=== PATIENT | female | born 1945 | race Caucasian/White ===

== ENCOUNTER 2019-03-11 09:08 | Day surgery (SDC) | payer MEDICARE, BC ==
[~2019-03-11 09:08] MED LIST: Lactated Ringers 1,000 ML IV SCH; Lidocaine 1%/Sod Bicarbonate in NS 8.4% 1 ML Syringe IDERM PRN; Sodium Chloride 0.9% 10 ML Syringe FLUSH PRN
--- NOTE | 2019-03-11 09:43 | PCM.PREANE ---
Preanesthetic Assessment - Anesthesia/Transfusion/Family Hx Anesthesia History: Prior Anesthesia Without Reaction Family History of Anesthesia Reaction: No Transfusion History: No Prior Transfusion(s) - Review of Systems General: No Symptoms Pulmonary: Other (stuffy nose) Cardiovascular: Dyspnea on Exertion Gastrointestinal: No Symptoms Neurological: No Symptoms Other: Reports: None - Physical Assessment NPO Status Date: 03/10/19 NPO Status Time: 00:00 Pulse: 79 O2 Sat by Pulse Oximetry: 96 Respiratory Rate: 16 Blood Pressure: 159/69 Temperature: 36.2 C Vital Signs: Last Vital Signs Temp 36.2 C 03/11/19 09:15 Pulse 79 03/11/19 09:15 Resp 16 03/11/19 09:15 BP 159/69 H 03/11/19 09:15 Pulse Ox 96 03/11/19 09:15 ASA Class: 3 Mental Status: Alert & Oriented x3 Airway Class: Mallampati = 2 Dentition: Reports: [place](s) Thyro-Mental Finger Breadths: 2 Mouth Opening Finger Breadths: 3 ROM/Head Extension: Limited/Partial Lungs: Clear to Auscultation, Normal Respiratory Effort Cardiovascular: Regular Rate, Regular Rhythm - Allergies Allergies/Adverse Reactions: Allergies Allergy/AdvReac Type Severity Reaction Status Date / Time Iodinated Contrast- Oral and Allergy Swelling Verified 03/08/19 12:28 IV Dye shellfish derived Allergy Swelling Verified 03/08/19 12:28 - Blood Blood Available: No Product(s) Available: None - Anesthesia Plan Pre-Op Medication Ordered: Beta Amena Beta Amena: Metoprolol Med Last Dose Date: 03/10/19 Med Last Dose Time: 00:00 - Acknowledgements Anesthesia Type Planned: MAC Pt an Appropriate Candidate for the Planned Anesthesia: Yes Alternatives and Risks of Anesthesia Discussed w Pt/Guardian: Yes Pt/Guardian Understands and Agrees with Anesthesia Plan: Yes PreAnesthesia Questionnaire Cardiovascular History: Reports: Blood Clots/VTE/DVT Respiratory History: Reports: PE Genitourinary History: Reports: None 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: 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 Neurological History: Reports: None Psychiatric History: Reports: None Endocrine/Metabolic History: Reports: None Hematologic History: Reports: None Immunologic History: Reports: None Oncologic (Cancer) History: Reports: Basal Cell Carcinoma, Breast Dermatologic History: Reports: Other (See Below) Other Dermatologic History: SEBORRHEIC KERATOSIS, SKIN EXCISIONS FOR BASAL CELL CARCINOMA - Past Surgical History Head Surgeries/Procedures: Reports: None HEENT Surgical History: Reports: Tonsillectomy Cardiovascular Surgical History: Reports: None Respiratory Surgical History: Reports: None GI Surgical History: Reports: Appendectomy, Colonoscopy Female Surgical History: Reports: Breast Biopsy, D&C, Hysterectomy, Oophorectomy Endocrine Surgical History: Reports: None Neurological Surgical History: Reports: None Musculoskeletal Surgical History: Reports: None Oncologic Surgical History: Reports: Lumpectomy - SUBSTANCE USE Smoking Status *Q: Former Smoker Tobacco Use Within Last Twelve Months: No Second Hand Smoke Exposure: No Days Per Week of Alcohol Use: 1 Number of Drinks Per Day: 0 Total Drinks Per Week: 0 Recreational Drug Use History: No - HOME MEDS Home Medications: Home Meds Allopurinol [Zyloprim] 50 mg PO DAILY 03/08/19 [History] Cholecalciferol (Vitamin D3) [Vitamin D3] 1,000 unit PO DAILY 03/08/19 [History] Cinnamon Bark [Cinnamon] 500 mg PO BID 03/08/19 [History] Fish Oil/[place]-3 Fatty Acids [Fish Oil 1,000 MG] 1 gm PO DAILY 03/08/19 [History ] Hydrochlorothiazide/Losartan [Hyzaar 50-12.5 MG] 1 tab PO DAILY 03/08/19 [ History] Lutein/Minerals/Vit A,C & E [Ocuvite] 1 tab PO DAILY 03/08/19 [History] Metoprolol Tartrate 50 mg PO BID 03/08/19 [History] Warfarin Sodium 2.5 mg PO MO 03/08/19 [History] Warfarin Sodium 5 mg PO SUTUWETHFRSA 03/08/19 [History] - CURRENT (IN HOUSE) MEDS Current Meds: Current Medications Lactated Ringer's (Ringers, Lactated) 1,000 mls @ 125 mls/hr IV ASDIRECTED STACY Stop: 03/11/19 23:00 Lidocaine/Sodium Bicarbonate (Buffered Lidocaine 1% In Ns 8.4%) 0.25 ml IDERM ONETIME PRN PRN Reason: Prior to IV Start Stop: 03/11/19 18:00 Sodium Chloride (Saline Flush) 10 ml FLUSH ASDIRECTED PRN PRN Reason: Keep Vein Open Stop: 03/11/19 18:00
[2019-03-11] MEDS ORDERED: Propofol 200 MG/20 ML SDV ONE ×2 (11:10→11:27)
[2019-03-11] MEDS ORDERED: Midazolam 1 MG/ML 2 ML SDV ONE (11:10)
[2019-03-11] MEDS ORDERED: fentaNYL 100 MCG/2 ML SDV ONE (11:10)
[2019-03-11] MEDS ORDERED: Lidocaine 1% 4 ML ONE (11:12)
--- NOTE | 2019-03-11 11:51 | PCM.OPNOTE ---
- General Post-Op/Procedure Note Date of Surgery/Procedure: 03/11/19 Operative Procedure(s): egd with bx and colonoscopy to cecum, Pre Op Diagnosis: positive cologuard and family hx of gastric cancer Post-Op Diagnosis: Same Anesthesia Technique: MAC Primary Surgeon: Rodger Zuniga EBL in mLs: 0 Complications: None Condition: Good
--- NOTE | 2019-03-12 07:01 | OR ---
DATE OF OPERATION: 03/11/2019 SURGEON: Rodger Zuniga MD PREOPERATIVE DIAGNOSIS: 1. Positive Cologuard. 2. Family history of gastric cancer. POSTOPERATIVE DIAGNOSIS: 1. Positive Cologuard. 2. Family history of gastric cancer. OPERATION PERFORMED: Upper GI endoscopy. FINDINGS: Show a short esophagus. GE junction of about 30 cm with a Schatzki's ring and a sliding hiatal hernia. The second portion of the duodenum, duodenal bulb, and pyloric channel were unremarkable. Antrum showed some atrophic mucosa. This was biopsied. Body and cardia of the stomach unremarkable as was the fundus and the balance of the esophagus did not show any pathology. ANESTHESIA: IV sedation. DESCRIPTION OF PROCEDURE: The patient was taken to the endoscopy room, placed in a supine position connected to monitoring equipment, and given IV sedation, placed in left lateral position. Bite block was inserted and video Olympus gastroscope placed in the posterior oropharynx. It was threaded under direct vision past the cricopharyngeus, down the esophagus, and into the stomach. Stomach was insufflated. Scope passed through the pylorus and the second portion of the duodenum. It was then slowly withdrawn showing the second portion of the duodenum, duodenal bulb, and pyloric channel. Antrum, body, cardia, and fundus of the stomach were viewed. J-maneuver was performed showing sliding hiatal hernia, atrophic gastric mucosa, especially in the antrum. The antrum was biopsied. Scope withdrawn to the GE junction, showed the above findings. No biopsies were done. Rest of the esophagus was unremarkable. The patient tolerated the procedure. Specimen was sent to pathology in a labeled container, and the endoscopy was continued for colonoscopy. ESTIMATED BLOOD LOSS: MMODAL /[id number]
--- NOTE | 2019-03-12 07:08 | OR ---
DATE OF OPERATION: 03/11/2017 SURGEON: Rodger Zuniga MD PREOPERATIVE DIAGNOSIS: Positive Cologuard test. POSTOPERATIVE DIAGNOSIS: Positive Cologuard test. OPERATION PERFORMED: Colonoscopy to the cecum. FINDINGS: Normal study. ANESTHESIA: IV sedation. DESCRIPTION OF PROCEDURE: The patient was taken to the endoscopy room having been connected to monitoring equipment, undergone an EGD, IV sedation continued for colonoscopy. She was placed in the left lateral position. Perianal area was inspected, it was normal. Rectal exam showed good sphincter tone. A video Olympus colonoscope was then introduced into the rectum and threaded up without problem to the cecum, where the appendicular orifice of the ileocecal valve was noted. Prep was excellent. [place] Cleansing Score grade A, and the scope was slowly withdrawn showing the cecum, ascending colon, transverse colon, descending colon, sigmoid colon, and rectum. Retroflex view was done. The patient tolerated the procedure and sent to recovery room in a stable condition. ESTIMATED BLOOD LOSS: MMODAL /[id number]
== END 2019-03-11 12:38 | disposition home or self-care (01) ==
LOC: JD.SDS 09:08
PROVIDERS: ATTEND Surgery
DX: K29.40 Chronic atrophic gastritis without bleeding (principal); R19.5 Other fecal abnormalities; K44.9 Diaphragmatic hernia without obstruction or gangrene; Z80.0 Family history of malignant neoplasm of digestive organs; D68.9 Coagulation defect, unspecified; Z79.01 Long term (current) use of anticoagulants; Z79.899 Other long term (current) drug therapy; Z91.013 Allergy to seafood; Z87.891 Personal history of nicotine dependence; Z91.041 Radiographic dye allergy status
CPT/HCPCS: 36415; 43239; 45378; 85610; 88305; J2001; J2250; J2704; J3010; J7120; 00813

== ENCOUNTER 2019-10-08 10:59 | Day surgery (SDC) | payer MEDICARE, BC ==
[~2019-10-08 10:59] MED LIST changes: +Cefuroxime 10 MG/ML SYRINGE EYERT SCH; +Lidocaine 1% PF 2 ML SDV INJECT SCH; +Pilocarpine 4% Ophth Soln 15 ML Bot EYERT SCH
[2019-10-08] MEDS: Polymyxin B/Trimethoprim 10 ML Bottle EYERT SCH ×3 (11:57→14:06)
--- NOTE | 2019-10-08 12:03 | PCM.PREANE ---
Preanesthetic Assessment - Anesthesia/Transfusion/Family Hx Anesthesia History: Prior Anesthesia Without Reaction Transfusion History: No Prior Transfusion(s) Intubation History: Unknown - Review of Systems General: No Symptoms Pulmonary: No Symptoms Cardiovascular: Other (HTN, on coumadin for blood clots, last dose 10/07/19) Gastrointestinal: No Symptoms Neurological: No Symptoms - Physical Assessment NPO Status Date: 10/07/19 NPO Status Time: 18:00 Height: 1.57 m Weight: 97.522 kg ASA Class: 2 Mental Status: Alert & Oriented x3 Airway Class: Mallampati = 2 Dentition: Reports: Normal Dentition Thyro-Mental Finger Breadths: 3 Mouth Opening Finger Breadths: 3 ROM/Head Extension: Full Lungs: Clear to Auscultation, Normal Respiratory Effort Cardiovascular: Regular Rate, Regular Rhythm - Allergies Allergies/Adverse Reactions: Allergies Allergy/AdvReac Type Severity Reaction Status Date / Time Iodinated Contrast Media Allergy Swelling Verified 10/07/19 15:29 [Iodinated Contrast- Oral and IV Dye] shellfish derived Allergy Swelling Verified 10/07/19 15:29 - Blood Blood Available: No Product(s) Available: None - Anesthesia Plan Pre-Op Medication Ordered: None - Acknowledgements Anesthesia Type Planned: MAC Pt an Appropriate Candidate for the Planned Anesthesia: Yes Alternatives and Risks of Anesthesia Discussed w Pt/Guardian: Yes Pt/Guardian Understands and Agrees with Anesthesia Plan: Yes PreAnesthesia Questionnaire Cardiovascular History: Reports: Blood Clots/VTE/DVT, Hypertension Respiratory History: Reports: PE Genitourinary History: Reports: None 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 Neurological History: Reports: None Psychiatric History: Reports: None Endocrine/Metabolic History: Reports: None Hematologic History: Reports: None Immunologic History: Reports: None Oncologic (Cancer) History: Reports: Basal Cell Carcinoma, Breast Dermatologic History: Reports: Other (See Below) Other Dermatologic History: SEBORRHEIC KERATOSIS, SKIN EXCISIONS FOR BASAL CELL CARCINOMA - Past Surgical History HEENT Surgical History: Reports: Tonsillectomy GI Surgical History: Reports: Appendectomy, Colonoscopy Female Surgical History: Reports: Breast Biopsy, D&C, Hysterectomy, Oophorectomy Oncologic Surgical History: Reports: Lumpectomy - HOME MEDS Home Medications: Home Meds Cholecalciferol (Vitamin D3) [Vitamin D3] 1,000 unit PO DAILY 03/08/19 [History] Cinnamon Bark [Cinnamon] 500 mg PO BID 03/08/19 [History] Hydrochlorothiazide/Losartan [Hyzaar 50-12.5 MG] 1 tab PO DAILY 03/08/19 [ History] Metoprolol Tartrate 50 mg PO BID 03/08/19 [History] Warfarin Sodium 2.5 mg PO MO 03/08/19 [History] Warfarin Sodium 5 mg PO SUTUWETHFRSA 03/08/19 [History] allopurinoL [Zyloprim] 50 mg PO DAILY 03/08/19 [History] Vit C/E/Zn/Coppr/Lutein/Zeaxan [Preservision Areds 2 Softgel] 1 cap PO DAILY [History] - CURRENT (IN HOUSE) MEDS Current Meds: Current Medications Brimonidine Tartrate (Alphagan 0.2% Ophth Soln) 0 ml EYERT ASDIRECTED SATCY Stop: 10/08/19 18:00 Cefuroxime Sodium (Zinacef) 0 mg EYERT ASDIRECTED STACY Stop: 10/08/19 18:00 Lactated Ringer's (Ringers, Lactated) 1,000 mls @ 125 mls/hr IV ASDIRECTED STACY Stop: 10/08/19 23:00 Lidocaine HCl (Xylocaine-Mpf 1%) 1 ml INJECT ASDIRECTED STACY Stop: 10/08/19 18:00 Lidocaine/Sodium Bicarbonate (Buffered Lidocaine 1% In Ns 8.4%) 0.25 ml IDERM ONETIME PRN PRN Reason: Prior to IV Start Stop: 10/08/19 18:00 Phenylephrine HCl (Raul-Synephrine 2.5% Ophth Soln) 0 ml EYERT ASDIRECTED STACY Stop: 10/08/19 18:00 Pilocarpine HCl (Pilocar 4% Ophth Soln) 0 ml EYERT ASDIRECTED STACY Stop: 10/08/19 18:00 Polymyxin/Trimethoprim Sulfate (Polytrim Ophth Soln) 0 ml EYERT ASDIRECTED STACY Stop: 10/08/19 18:00 Sodium Chloride (Saline Flush) 10 ml FLUSH ASDIRECTED PRN PRN Reason: Keep Vein Open Stop: 10/08/19 18:00 Tetracaine HCl (Tetracaine 0.5% Steri-Unit Hetal) 0 ml EYERT ASDIRECTED STACY Stop: 10/08/19 18:00 Tropicamide (Mydriacyl 1% Ophth Soln) 0 ml EYERT ASDIRECTED STACY Stop: 10/08/19 18:00
[2019-10-08] MEDS: Brimonidine 0.2% Ophth Soln 5 ML Bottle EYERT SCH ×4 (12:06→14:06)
[2019-10-08] MEDS: Phenylephrine 2.5% Ophth Soln 2 ML Bot EYERT SCH ×5 (12:11→13:38)
[2019-10-08] MEDS: Tropicamide 1% Ophth Soln 15 ML Bottle EYERT SCH ×4 (12:17→13:01)
[2019-10-08] MEDS: Tetracaine HCl/PF 0.5% 4 ML Bottle EYERT SCH ×2 (13:21→13:42)
[2019-10-08] MEDS ORDERED: Erythromycin Base 0.5% Ophth Oint 1 GM Tube EYEBOTH SCH (13:30)
[2019-10-08] MEDS ORDERED: Lidocaine 1% with EPINEPHrine 1:100,000 20 ML MDV ONE (13:30)
--- NOTE | 2019-10-08 14:08 | PCM48HPAN ---
Post Anesthesia Note - EVALUATION WITHIN 48HRS OF ANESTHETIC Vital Signs in Normal Range: Yes Patient Participated in Evaluation: Yes Respiratory Function Stable: Yes Airway Patent: Yes Cardiovascular Function Stable: Yes Hydration Status Stable: Yes Pain Control Satisfactory: Yes Nausea and Vomiting Control Satisfactory: Yes Mental Status Recovered: Yes Vital Signs: Last Vital Signs Temp 36.3 C 10/08/19 11:43 Pulse 67 10/08/19 11:43 Resp 16 10/08/19 11:43 BP 136/61 10/08/19 11:43 Pulse Ox 97 10/08/19 11:43
== END 2019-10-08 14:19 | disposition home or self-care (01) ==
LOC: JD.SDS 10:59
PROVIDERS: ATTEND Ophthalmology
DX: H25.811 Combined forms of age-related cataract, right eye (principal); L82.1 Other seborrheic keratosis; I10 Essential (primary) hypertension; M19.90 Unspecified osteoarthritis, unspecified site; M10.9 Gout, unspecified; Z87.891 Personal history of nicotine dependence; Z91.041 Radiographic dye allergy status; Z91.013 Allergy to seafood; Z96.1 Presence of intraocular lens; Z98.42 Cataract extraction status, left eye; Z79.899 Other long term (current) drug therapy; Z79.01 Long term (current) use of anticoagulants
CPT/HCPCS: 66984; 67961; A9270; C1780; J0697; J2001